=== PATIENT | male | born 1965 | race Caucasian/White ===

== ENCOUNTER 2024-07-23 00:41 | Day surgery (SDC) | payer BC, SELFPAY ==
--- NOTE | 2024-07-22 17:06 | P.PNAN_ITS ---
Anes - Eval Pre Procedure Procedure: Operation Date: 07/23/24 07:30 Proposed Procedures p Screening Colonoscopy - Shelton Teixeira MD Date/Time: 07/22/24 17:06 Pre Op Diagnosis: Neoplasm Screening Patient Data Age: 59 Gender: M Height: 1.85 m Weight: 69 kg Allergies Allergy/AdvReac Type Severity Reaction Status Date / Time No Known Allergies Allergy Verified 07/09/24 13:26 Home Medications Medication Instructions Recorded Confirmed Type biotin 1 mg capsule 1 mg PO DAILY 07/09/24 07/09/24 History multivit with minerals-iron 18 1 tablet PO DAILY 07/09/24 07/09/24 History mg-folic ac 400 mcg-vit K 25 mcg tablet (Adults Multivitamin) sildenafil 100 mg tablet 100 mg PO DAILY PRN Sexual Activity 07/09/24 07/09/24 History Patient hx anesthesia problems: none Family hx anesthesia problems: none Results Review: All pre-operative results and documents have been reviewed as part of the pre- operative evaluation. PMFSH Past Medical History Medical History Alcohol abuse Marijuana abuse Smoker Social History Social History Smoking packs per day: 1.5 Smoking cigarettes per day: 30.0 Years smoked: 42 Smoking pack-years: 63.00 Smoking status: Current every day smoker Tobacco type: cigarettes Alcohol intake: current Drinks per week: 24 Substance use type: marijuana Living arrangements: alone Spiritual care concerns: No Exam Day of Procedure 07/22/24 17:06 Patient weight: normal
[2024-07-23 06:24] VITALS: BP 117/75; PULSE 64; RESP 18; TEMP 35.9; O2SAT 99
[2024-07-23] MEDS: LACTATED RINGERS 1,000 ML 150 ML IV CONT (06:31)
--- NOTE | 2024-07-23 06:57 | WPDANESEPPF ---
Anes - Initial Pre Proc Eval Procedure: Operation Date: 07/23/24 07:30 Proposed Procedures p Screening Colonoscopy - Shelton Teixeira MD Date/Time: 07/23/24 06:57 Surgeon: Shelton Teixeira MD Pre Op Diagnosis: Neoplasm Screening Patient Data Age: 59 Gender: M Height: 1.85 m Weight: 67.4 kg Last Vital Signs Temp 35.9 C L 07/23/24 06:24 Pulse 64 07/23/24 06:24 Resp 18 07/23/24 06:24 BP 117/75 07/23/24 06:24 Pulse Ox 99 07/23/24 06:24 O2 Del Method Room Air 07/23/24 06:24 Allergies Allergy/AdvReac Type Severity Reaction Status Date / Time No Known Allergies Allergy Verified 07/23/24 06:23 Home Medications Medication Instructions Recorded Confirmed Type biotin 1 mg capsule 1 mg PO DAILY 07/09/24 07/23/24 History multivit with minerals-iron 18 1 tablet PO DAILY 07/09/24 07/23/24 History mg-folic ac 400 mcg-vit K 25 mcg tablet (Adults Multivitamin) sildenafil 100 mg tablet 100 mg PO DAILY PRN Sexual Activity 07/09/24 07/23/24 History Patient hx anesthesia problems: none Family hx anesthesia problems: none Results Review: All pre-operative results and documents have been reviewed as part of the pre-operative evaluation. [facility] Past Medical History Medical History Alcohol abuse Leg fracture Marijuana abuse Smoker Surgical History Surgical History (Updated 07/23/24 @ 07:01 by Chase Rizo MD) Hx of tonsillectomy S/P appendectomy Social History Social History Smoking packs per day: 1.5 Smoking cigarettes per day: 30.0 Years smoked: 42 Smoking pack-years: 63.00 Smoking status: Current every day smoker Tobacco type: cigarettes Alcohol intake: current Drinks per week: 24 Substance use type: marijuana Living arrangements: alone Spiritual care concerns: No Anes - Eval Final PreProcedure Day of Procedure 07/23/24 06:57 Patient weight: normal Heart: regular rate and rhythm Lungs: clear to auscultation Airway: Mallampati scale class II Neurological: alert and oriented Last oral intake: >/= 8 hours ASA classification: III Emergent: no Anesthetic plan: proceed Anesthesia type and monitoring: general GIVS and standard monitoring Results Review: All pre-operative results and documents have been reviewed as part of the pre-operative evaluation. Informed Consent: The patient's anesthetic plan and its attendant risks and benefits were discussed with the patient/family/POA. Questions were solicited and answers provided to the satisfaction of the patient/family/POA.
--- NOTE | 2024-07-23 07:33 | PM.IMHP ---
H&P: HPI History of Present Illness Date/Time: 07/23/24 07:33 Chief Complaint: screening colonoscopy Narrative: this is the patient's 1st screening colonoscopy. There is no family history of colorectal cancer. The patient is asymptomatic. Review of Systems Review of Systems: All systems reviewed & are unremarkable except as noted in HPI and below PMFSH Past Medical History Medical History Alcohol abuse Leg fracture Marijuana abuse Smoker Surgical History Surgical History (Updated 07/23/24 @ 07:01 by Chase Rizo MD) Hx of tonsillectomy S/P appendectomy Social History Social History Smoking packs per day: 1.5 Smoking cigarettes per day: 30.0 Years smoked: 42 Smoking pack-years: 63.00 Smoking status: Current every day smoker Tobacco type: cigarettes Alcohol intake: current Drinks per week: 24 Substance use type: marijuana Living arrangements: alone Spiritual care concerns: No Meds Home Medications and Allergies Home Medications Medication Instructions Recorded Confirmed Type biotin 1 mg capsule 1 mg PO DAILY 07/09/24 07/23/24 History multivit with minerals-iron 18 1 tablet PO DAILY 07/09/24 07/23/24 History mg-folic ac 400 mcg-vit K 25 mcg tablet (Adults Multivitamin) sildenafil 100 mg tablet 100 mg PO DAILY PRN Sexual Activity 07/09/24 07/23/24 History Allergies Allergy/AdvReac Type Severity Reaction Status Date / Time No Known Allergies Allergy Verified 07/23/24 06:23 Vital Signs Vital Signs - 24 hr 07/23/24 06:24 Temperature 96.7 F L Pulse Rate 64 Respiratory Rate 18 Blood Pressure 117/75 Pulse Oximetry 99 Oxygen Delivery Room Air Assessment and Plan Assessment and plan (1) Screening for malignant neoplasm of colon: Code(s): Z12.11 - Encounter for screening for malignant neoplasm of colon Status: Acute Assessment and Plan: Patient is deemed a good candidate for colonoscopy. Will proceed.
[2024-07-23 08:16] VITALS: BP 95/68; PULSE 51; RESP 20; O2SAT 100
[2024-07-23 08:26] VITALS: BP 116/75; PULSE 68; RESP 18; O2SAT 100
[2024-07-23 08:36] VITALS: BP 122/75; PULSE 51; RESP 16; O2SAT 100
== END 2024-07-23 09:01 | disposition home or self-care (01) ==
PROVIDERS: PCP Family Medicine; Visit Provider Internal Medicine Gastroenterology
PROC: 0DJD8ZZ Inspection of Lower Intestinal Tract, Via Natural or Artificial Opening Endoscopic (ICD-10-PCS; CPT 45378; principal; 2024-07-23 07:30)
DX: Z12.11 Encounter for screening for malignant neoplasm of colon (principal); K63.5 Polyp of colon; K52.9 Noninfective gastroenteritis and colitis, unspecified; K57.30 Diverticulosis of large intestine without perforation or abscess without bleeding; K63.89 Other specified diseases of intestine; F17.210 Nicotine dependence, cigarettes, uncomplicated; F12.90 Cannabis use, unspecified, uncomplicated
CPT/HCPCS: 45330; 88305; J0171; J2003; J2704; J7120